=== PATIENT | female | born 1995 | race Two or more races ===

== ENCOUNTER 2017-06-07 10:25 | Observation (INO) | payer MEDICAID ==
[~2017-06-07] VITALS: Ht 154.9 cm; Wt 60.8 kg
[2017-06-07] MEDS ORDERED: PREN27TA7 OR (13:17)
== END 2017-06-07 14:20 | disposition home or self-care (01) | DRG 566 ==
LOC: LDRP 10:25
PROVIDERS: ADMIT Obstetrics & Gynecology; ATTEND Obstetrics & Gynecology
DX: O62.9 Abnormality of forces of labor, unspecified (principal); Z3A.38 38 weeks gestation of pregnancy
CPT/HCPCS: 59025; 81002; G0378; 96365

== ENCOUNTER 2017-06-20 18:19 | Observation (INO) | payer MEDICAID ==
[~2017-06-20] VITALS: Ht 154.9 cm; Wt 73.5 kg
[~2017-06-20 18:19] MED LIST: PREN27TA7 OR
[2017-06-20] MEDS ORDERED: LACTATED RINGER'S 1,000 ML IV ONE (19:22)
[2017-06-20] MEDS ORDERED: NALBUPHINE HCL 10 MG/1ml INJECTION IV ONE (19:30)
== END 2017-06-20 21:03 | disposition home or self-care (01) | DRG 566 ==
LOC: LDRP 18:19 → UNDODISOB 21:03
PROVIDERS: ADMIT Obstetrics & Gynecology; ATTEND Obstetrics & Gynecology
DX: O00.01 Abdominal pregnancy with intrauterine pregnancy (principal); Z3A.00 Weeks of gestation of pregnancy not specified
CPT/HCPCS: 59025; 96361; 96374; G0378; J2300; 96365; 96366

== ENCOUNTER 2017-06-21 06:25 | Inpatient (IN) | payer MEDICAID ==
[~2017-06-21] VITALS: Ht 154.9 cm; Wt 73.0 kg
[2017-06-21] MEDS ORDERED: LACTATED RINGER'S 1,000 ML IV SCH (06:42)
[2017-06-21] MEDS ORDERED: LACT. RINGERS/OXYTOCIN 20UNITS 1,000 ML IV SCH (06:42)
[2017-06-21] MEDS ORDERED: PHISODERM TOP SOLN 240ML BTL TOP PRN (06:45)
[2017-06-21] MEDS ORDERED: NALBUPHINE HCL 10 MG/1ml INJECTION IV PRN (06:45)
[2017-06-21] MEDS ORDERED: LIDOCAINE 2% (LOCAL ANESTH.) PF 5ml SDV ID ONE (06:45)
[2017-06-21] MEDS ORDERED: METHYLERGONOVINE MALEATE 0.2 MG/ML AMP IM PRN (06:45)
[2017-06-21] MEDS ORDERED: DERMOPLAST 60ML BOTTLE TOP PRN (06:45)
[2017-06-21] MEDS ORDERED: WITCH HAZEL-GLYCERIN PAD TOP PRN (06:45)
[2017-06-21 07:27] LABS: Basophils # (auto) 0 uL; Basophils % (auto) 0.5 % (0.0-2.0); Eosinophils # (auto) 0.1 uL; Eosinophils % (auto) 0.9 % (0.0-7.0); Hematocrit 36.7 % (36.0-46.0); Hemoglobin 12.4 g/dL (12.2-16.2); Lymphocytes # (auto) 2.1 uL; Lymphocytes % (auto) 21.4 % (10.0-50.0); Mean Corpuscular Hemoglobin 29.9 pg (28.0-32.0); Mean Corpuscular Hgb Conc. 33.7 g/dL (32.0-36.0); Mean Corpuscular Volume 88.7 fL (80.0-100.0); Monocytes # (auto) 0.5 uL; Monocytes % (auto) 5.5 % (0.0-12.0); Neutrophils % (auto) 71.7 % (37.0-80.0); Platelet Count (auto) 177 10^3/uL (140-450); Red Blood Cells 4.14 10^6/uL (4.0-5.20); Red Cell Distribution Width 13.4 % (11.8-14.3); White Blood Cell 9.7 10^3/uL (4.4-10.8)
[2017-06-21 07:47] LABS: INR 0.84 (0.9-1.15); Partial Thromboplastin Time 27.1 sec (22.64-33.71); Prothrombin Time 9.1 sec (9.37-12.3)
[2017-06-21 07:49] LABS: Albumin 2.7 g/dL (3.4-5.0); BUN/Creatinine Ratio 9.7; Bilirubin, Total 0.2 mg/dL (0.2-1.0); Calcium 8.9 mg/dL (8.5-10.1); Potassium 3.6 mmol/L (3.5-5.1); Total Protein 6.9 g/dL (6.4-8.2)
[2017-06-21] MEDS ORDERED: LIDOCAINE HCL 2 %PF INJ 10ML AMP IJ ONE (08:00)
[2017-06-21] MEDS ORDERED: BUTORPHANOL TARTRATE 2 MG/1 ML VIAL IM ONE (08:00)
[2017-06-21] MEDS ORDERED: NALOXONE HCL 0.4 MG/ML VIAL IV ONE ×2 (08:00→09:15)
[2017-06-21] MEDS ORDERED: fentaNYL CITRATE 100 MCG/2 ML VL IV ONE (08:00)
[2017-06-21] MEDS ORDERED: ePHEDrine SULFATE 50 MG/ML AMP IV ONE ×2 (08:00→09:15)
[2017-06-21] MEDS ORDERED: fentaNYL W ROPIVACAINE 150 ML EPI SCH (08:00)
[2017-06-21] MEDS ORDERED: BUTORPHANOL TARTRATE 2 MG/1 ML VIAL IV ONE (08:15)
[2017-06-21] MEDS ORDERED: ePHEDrine SULFATE 50 MG/ML AMP IV PRN (09:15)
[2017-06-21] MEDS ORDERED: MIDAZOLAM HCL 1MG/1ML-2 ML VIAL IV PRN (09:15)
[2017-06-21] MEDS ORDERED: MORPHINE SULFATE 4 MG/ML SYR/VIAL IV PRN (09:15)
[2017-06-21] MEDS ORDERED: ONDANSETRON HCL 4 MG/2 ML VIAL IV ONE (09:15)
[2017-06-21] MEDS ORDERED: HYDROmorphone HCL 2 MG/ML VL IV PRN (09:15)
[2017-06-21] MEDS ORDERED: LABETALOL HCL 5 MG/ML 4ML SYRINGE IV PRN (09:15)
[2017-06-21] MEDS ORDERED: KETOROLAC TROMETH 30 MG/ML 1ML VIAL IV ONE (09:15)
[2017-06-21] MEDS ORDERED: HYDROmorphone HCL 2 MG/ML VL IV ONE (10:00)
[2017-06-21] MEDS ORDERED: MORPHINE SULFATE 4 MG/ML SYR/VIAL IV ONE (10:00)
[2017-06-21] MEDS ORDERED: ACETAMINOPHEN 325 MG TAB PO PRN (17:00)
[2017-06-21 18:40] VITALS: BP 118/58
[2017-06-21] MEDS: IBUPROFEN 600 MG TAB PO PRN (20:20)
[2017-06-21 23:00] VITALS: BP 109/58
[2017-06-22 02:43] VITALS: BP 119/79
[2017-06-22] MEDS: IBUPROFEN 600 MG TAB PO PRN (02:47)
[2017-06-22 07:00] VITALS: BP 112/74
[2017-06-22] MEDS ORDERED: TETANUS-DIPTH-ACEL PERTUSSIS 0.5ML SYRG IM ONE (08:15)
[2017-06-22 11:01] VITALS: BP 103/57
[2017-06-22 15:00] VITALS: BP 105/52
== END 2017-06-22 17:41 | disposition home or self-care (01) | DRG 560 ==
LOC: LDRP 06:25
PROVIDERS: ADMIT Obstetrics & Gynecology; ATTEND Obstetrics & Gynecology
PROC: 10E0XZZ Delivery of Products of Conception, External Approach (ICD-10-PCS; principal; 2017-06-21)
PROC: 0KQM0ZZ Repair Perineum Muscle, Open Approach (ICD-10-PCS; 2017-06-21)
PROC: 00HU33Z Insertion of Infusion Device into Spinal Canal, Percutaneous Approach (ICD-10-PCS; 2017-06-21)
PROC: 3E0R3BZ Introduction of Anesthetic Agent into Spinal Canal, Percutaneous Approach (ICD-10-PCS; 2017-06-21)
PROC: 10907ZC Drainage of Amniotic Fluid, Therapeutic from Products of Conception, Via Natural or Artificial Opening (ICD-10-PCS; 2017-06-21)
DX: O48.0 Post-term pregnancy (principal); O70.1 Second degree perineal laceration during delivery; Z37.0 Single live birth; Z3A.40 40 weeks gestation of pregnancy; Z23 Encounter for immunization
CPT/HCPCS: 36415; 59025; 59409; 62282; 80053; 81002; 85025; 85610; 85730; 86850; 86900; 86901; 90472; 90715; 96365; 96366; 96375; J2590; J3010

== ENCOUNTER → 2021-05-16 | Outpatient (CLI) | payer MEDICAID ==
[2021-05-16 10:11] LABS: Basophils # (auto) 0 10 ^3/uL (0-0.2); Basophils % (auto) 0.4 % (0.0-2.0); Eosinophils # (auto) 0.2 10 ^3/uL (0-0.8); Hematocrit 34.1 % (36.0-46.0); Hemoglobin 11.7 g/dL (12.2-16.2); Lymphocytes # (auto) 1.6 10 ^3/uL (0.4-5.4); Mean Corpuscular Hemoglobin 29.8 pg (28.0-32.0); Mean Corpuscular Hgb Conc. 34.2 g/dL (32.0-36.0); Monocytes # (auto) 0.6 10 ^3/uL (0-1.3); Monocytes % (auto) 6.8 % (0.0-12.0); Neutrophils # (auto) 6.4 10 ^3/uL (1.6-8.6); Neutrophils % (auto) 72.8 % (37.0-80.0); Red Blood Cells 3.92 10^6/uL (4.0-5.20); Red Cell Distribution Width 13.6 % (11.8-14.3); White Blood Cell 8.8 10^3/uL (4.4-10.8)
[2021-05-16 10:44] LABS: Amphetamine Screen, Urine NEGATIVE (NEGATIVE); Barbiturate Scree,Urine NEGATIVE (NEGATIVE); Benzodiazephine Screen, Urine NEGATIVE (NEGATIVE); Cannabinoid Screen, Urine NEGATIVE (NEGATIVE); Cocaine Screen, Urine NEGATIVE (NEGATIVE); Opiate Scree,Urine NEGATIVE (NEGATIVE); Phencyclidine Screen, Urine NEGATIVE (NEGATIVE)
[2021-05-17 07:07] LABS: RPR Non Reactive (Non Reactive)
== END | disposition home or self-care (01) ==
LOC: LAB 09:41
PROVIDERS: ATTEND Obstetrics & Gynecology
DX: Z34.80 Encounter for supervision of other normal pregnancy, unspecified trimester (principal); N39.0 Urinary tract infection, site not specified; Z31.430 Encounter of female for testing for genetic disease carrier status for procreative management; Z36.0 Encounter for antenatal screening for chromosomal anomalies
CPT/HCPCS: 36415; 80307; 83036; 84112; 84702; 85025; 86592; 86703; 86762; 86850; 86900; 86901; 87086; 87340

== ENCOUNTER 2021-05-31 12:00 | Observation (INO) | payer MEDICAID | END 2021-05-31 13:29 | disposition home or self-care (01) | LOC: LDRP 12:00 | PROVIDERS: ADMIT Obstetrics & Gynecology; ATTEND Obstetrics & Gynecology | DX: O62.9 Abnormality of forces of labor, unspecified (principal); Z3A.00 Weeks of gestation of pregnancy not specified | CPT/HCPCS: 59025; 81002; 94760; G0378 ==

== ENCOUNTER 2021-06-06 19:49 | Observation (INO) | payer MEDICAID | END 2021-06-06 23:32 | disposition home or self-care (01) | LOC: LDRP 19:49 | PROVIDERS: ADMIT Obstetrics & Gynecology; ATTEND Obstetrics & Gynecology | DX: O62.9 Abnormality of forces of labor, unspecified (principal); O46.93 Antepartum hemorrhage, unspecified, third trimester; Z3A.40 40 weeks gestation of pregnancy | CPT/HCPCS: 59025; 81002; 94760; G0378 ==

== ENCOUNTER 2021-06-07 01:34 | Inpatient (IN) | payer MEDICAID ==
[~2021-06-07] VITALS: Ht 154.9 cm; Wt 76.2 kg
[2021-06-07] MEDS ORDERED: PHISODERM TOP SOLN 240ML BTL TOP PRN (01:45)
[2021-06-07] MEDS ORDERED: DERMOPLAST 60ML BOTTLE TOP PRN (01:45)
[2021-06-07] MEDS ORDERED: WITCH HAZEL-GLYCERIN PAD TOP PRN (01:45)
[2021-06-07] MEDS ORDERED: PROMETHAZINE HCL 25 MG/ML 1ML IM PRN (01:45)
[2021-06-07] MEDS ORDERED: LIDOCAINE 2%HCL (LOCAL ANESTH.) INJ 10ml MDV IJ PRN (01:45)
[2021-06-07] MEDS ORDERED: BUTORPHANOL TARTRATE 2 MG/1 ML VIAL IV PRN ×2 (01:45)
[2021-06-07] MEDS ORDERED: LACTATED RINGER'S 1,000 ML IV SCH (01:45)
[2021-06-07 03:00] LABS: Alcohol, Urine < 3.0 mg/dL (0-10); Amphetamine Screen, Urine NEGATIVE (NEGATIVE); Barbiturate Scree,Urine NEGATIVE (NEGATIVE); Benzodiazephine Screen, Urine NEGATIVE (NEGATIVE); Cannabinoid Screen, Urine NEGATIVE (NEGATIVE); Cocaine Screen, Urine NEGATIVE (NEGATIVE); Opiate Scree,Urine NEGATIVE (NEGATIVE); Phencyclidine Screen, Urine NEGATIVE (NEGATIVE)
[2021-06-07 03:01] LABS: Albumin 2.8 g/dL (3.4-5.0); BUN/Creatinine Ratio 15.4; Calcium 8.9 mg/dL (8.5-10.1); Potassium 3.8 mmol/L (3.5-5.1)
[2021-06-07 03:02] LABS: Urine Bacteria NONE SEEN /hpf (None Seen); Urine Blood TRACE /uL (Negative); Urine Specific Gravity 1.008 (1.001-1.035); Urine WBC 1 /hpf (0 - 5)
[2021-06-07 03:04] LABS: Bilirubin, Total 0.2 mg/dL (0.2-1.0); Total Protein 6.9 g/dL (6.4-8.2)
[2021-06-07 03:07] LABS: Basophils # (auto) 0.1 10 ^3/uL (0-0.2); Basophils % (auto) 0.4 % (0.0-2.0); Eosinophils # (auto) 0.2 10 ^3/uL (0-0.8); Eosinophils % (auto) 1.3 % (0.0-7.0); Hematocrit 36.8 % (36.0-46.0); Hemoglobin 12.4 g/dL (12.2-16.2); Lymphocytes # (auto) 2.2 10 ^3/uL (0.4-5.4); Mean Corpuscular Hemoglobin 29.7 pg (28.0-32.0); Mean Corpuscular Hgb Conc. 33.5 g/dL (32.0-36.0); Mean Corpuscular Volume 88.5 fL (80.0-100.0); Monocytes # (auto) 1.1 10 ^3/uL (0-1.3); Monocytes % (auto) 7.3 % (0.0-12.0); Neutrophils # (auto) 11.3 10 ^3/uL (1.6-8.6); Red Blood Cells 4.16 10^6/uL (4.0-5.20); Red Cell Distribution Width 13.7 % (11.8-14.3); White Blood Cell 14.8 10^3/uL (4.4-10.8)
[2021-06-07 03:16] LABS: INR 0.92 (0.9-1.15); Partial Thromboplastin Time 25.6 sec (23.6-33.0)
[2021-06-07] MEDS ORDERED: LACTATED RINGER'S 1,000 ML IV ONE (04:00)
[2021-06-07] MEDS ORDERED: NALOXONE HCL 0.4 MG/ML VIAL IV ONE (04:00)
[2021-06-07] MEDS ORDERED: ePHEDrine SULFATE 50 MG/ML AMP IV ONE (04:00)
[2021-06-07] MEDS ORDERED: fentaNYL CITRATE 100 MCG/2 ML VL IV ONE (04:00)
[2021-06-07] MEDS ORDERED: LIDOCAINE HCL 2 %PF INJ 10ML AMP IJ ONE (04:00)
[2021-06-07] MEDS ORDERED: ROPIVACAINE HCL 200 ML EPI SCH (04:00)
[2021-06-07] MEDS ORDERED: LACT. RINGERS/OXYTOCIN 20UNITS 500 ML IV ONE ×2 (04:00→04:30)
[2021-06-07] MEDS ORDERED: METHYLERGONOVINE MALEATE 0.2 MG/ML AMP IM ONE (05:26)
[2021-06-07] MEDS ORDERED: ACETAMINOPHEN 325 MG TAB PO PRN (06:45)
[2021-06-07] MEDS: IBUPROFEN 600 MG TAB PO PRN (07:26)
[2021-06-07 09:00] VITALS: BP 109/61
[2021-06-07 11:09] VITALS: BP 86/53
[2021-06-07 14:55] VITALS: BP 106/64
[2021-06-07 15:34] VITALS: BP 106/64
[2021-06-07 18:53] VITALS: BP 92/51
[2021-06-07 23:00] VITALS: BP 95/51
[2021-06-08 03:00] VITALS: BP 93/52
[2021-06-08] MEDS ORDERED: DOCUSATE SOD 100 MG CAP PO PRN (05:45)
[2021-06-08] MEDS: IBUPROFEN 600 MG TAB PO PRN (06:04)
[2021-06-08 06:41] VITALS: BP 95/51
[2021-06-08 07:06] LABS: RPR Non Reactive (Non Reactive)
== END 2021-06-08 10:55 | disposition home or self-care (01) | DRG 560 ==
LOC: LDRP 01:34 → OBSVTOIN 01:45
PROVIDERS: ADMIT Obstetrics & Gynecology; ATTEND Obstetrics & Gynecology
PROC: 10E0XZZ Delivery of Products of Conception, External Approach (ICD-10-PCS; principal; 2021-06-07)
PROC: 0UQMXZZ Repair Vulva, External Approach (ICD-10-PCS; 2021-06-07)
DX: O71.82 Other specified trauma to perineum and vulva (principal); Z37.0 Single live birth; Z20.822 Contact with and (suspected) exposure to COVID-19; Z3A.40 40 weeks gestation of pregnancy
CPT/HCPCS: 36415; 59025; 80053; 80307; 81001; 85025; 85610; 85730; 86592; 86850; 86900; 86901; 94760; 96360; 96361; 96365; 96372; G0378; J2001; J2590